=== PATIENT | male | born 1980 | race American Indian/Alaskan Native ===

== ENCOUNTER 2019-03-28 12:21 | Emergency (ER) | payer OTHER ==
--- NOTE | 2019-03-28 12:46 | Emergency Department Report ---
Blank Doc - Documentation Documentation: 38 y/o male c/o of work related wrist pain also found to have undiagnosed HTN his initial assessment/diagnostic orders/clinical plan/treatment(s) is/are subject to change based on patient's health status, clinical progression and re- assessment by fellow clinical providers in the ED. Further treatment and workup at subsequent clinical providers discretion. Patient/guardians urged not to elope from the ED as their condition may be serious if not clinically assessed and managed. Initial orders include: A/P Discussed Carpal tunnel treatment and splinting Needs BP to be addressed 188/132 asymptomatic
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
[2019-03-28 15:44] VITALS: BP 174/100
== END 2019-03-28 15:42 | disposition home or self-care (01) ==
LOC: ED 12:21
DX: M77.9 Enthesopathy, unspecified (principal); M25.531 Pain in right wrist; Z79.899 Other long term (current) drug therapy; X50.0XXA Overexertion from strenuous movement or load, initial encounter; Y93.89 Activity, other specified; Y92.89 Other specified places as the place of occurrence of the external cause; Y99.8 Other external cause status
CPT/HCPCS: 99282